=== PATIENT | female | born 1995 | race African-American/Black ===

== ENCOUNTER 2018-01-28 20:10 | Emergency (ER) | payer SELFPAY ==
[2018-01-28 21:12] LABS: URINE HCG POC HCG POSITIVE (Negative)
== END 2018-01-28 21:40 | disposition home or self-care (01) ==
LOC: ER 20:10
DX: Z32.01 Encounter for pregnancy test, result positive (principal)
CPT/HCPCS: 81025; 99282

== ENCOUNTER 2019-02-16 17:31 | Emergency (ER) | payer SELFPAY ==
[~2019-02-16] VITALS: Ht 160 cm; Wt 77.1 kg
[2019-02-16] MEDS ORDERED: LORA-434 PO (18:07)
[2019-02-16 18:31] LABS: BASO % 0 % (0-3); EOS # 0.2 x10^3/uL (0.0-0.7); EOS % 2 % (0-3); HEMATOCRIT 36.9 % (36.0-47.0); HEMOGLOBIN 12.3 g/dL (12.0-15.5); LYMPH # 3.2 x10^3/uL (1.0-4.8); LYMPH % 39 % (24-48); MEAN CORPUSCULAR HEMOGLOBIN 29 pg (25-35); MEAN CORPUSCULAR HGB CONC 33 g/dL (31-37); MEAN CORPUSCULAR VOLUME 87 fL (79-100); MONO # 0.4 x10^3/uL (0.0-1.1); MONO % 5 % (0-9); NEUT # 4.4 x10^3/uL (1.8-7.7); NEUT % 54 % (31-73); PLATELET COUNT 300 x10^3/uL (140-400); RED BLOOD COUNT 4.27 x10^6/uL (3.50-5.40); RED CELL DISTRIBUTION WIDTH 13.5 % (11.5-14.5); WHITE BLOOD COUNT 8.3 x10^3/uL (4.0-11.0)
[2019-02-16 18:39] LABS: CALCIUM 9.1 mg/dL (8.5-10.1); CREATININE 0.9 mg/dL (0.6-1.0); GFR 93.9; POTASSIUM 3.6 mmol/L (3.5-5.1)
[2019-02-16 18:45] LABS: ALBUMIN 3.9 g/dL (3.4-5.0); TOTAL BILIRUBIN 0.2 mg/dL (0.2-1.0); TOTAL PROTEIN 7.9 g/dL (6.4-8.2)
[2019-02-16 19:40] VITALS: BP 115/72
--- NOTE | 2019-02-16 19:52 | PHYS DOC ---
Past Medical History Past Medical History: No Pertinent History Past Surgical History: No Surgical History Alcohol Use: None Drug Use: None Adult General Chief Complaint Chief Complaint: CHEST PAIN HPI HPI Patient is a 23 year old female who presents with a chief complaint of chest discomfort she thinks that her anxiety it feels tight at times is intermittent in nature it's been since around 2 PM. She is 5 months she does have a prior history of anxiety she had been on Wellbutrin and Effexor which did help her in the past but she has not been on anything since she had her baby. Not exertional no shortness of breath no prior history of blood clot not coughing up any blood no other symptoms symptoms are related mild overall All other ROS neg unless otherwise noted in HPI Review of Systems Review of Systems SEE ABOVE Allergies Allergies Allergies Coded Allergies Type Severity Reaction Last Updated Verified No Known Drug Allergies 01/28/18 No Physical Exam Physical Exam see above Constitutional: Well developed, well nourished, no acute distress, non-toxic appearance. [] HENT: Normocephalic, atraumatic, bilateral external ears normal, oropharynx moist, no oral exudates, nose normal. [] Eyes: PERRLA, EOMI, conjunctiva normal, no discharge. [] Neck: Normal range of motion, no tenderness, supple, no stridor. [] Cardiovascular:Heart rate regular rhythm, no murmur [] Lungs & Thorax: Bilateral breath sounds clear to auscultation [] Abdomen: Bowel sounds normal, soft, no tenderness, no masses, no pulsatile mas ses. [] Skin: Warm, dry, no erythema, no rash. [] Back: No tenderness, no CVA tenderness. [] Extremities: No tenderness, no cyanosis, no clubbing, ROM intact, no edema. [] Neurologic: Alert and oriented X 3, normal motor function, normal sensory function, no focal deficits noted. [] Psychologic: Affect normal, judgement normal, mood normal. [] Current Patient Data Vital Signs Vital Signs Date Time Temp Pulse Resp B/P (MAP) Pulse Ox O2 Delivery O2 Flow Rate FiO2 02/16/19 17:47 97.9 90 18 134/60 (84) 99 Room Air 97.9 Lab Values Laboratory Tests Test 02/16/19 18:20 02/16/19 19:10 White Blood Count 8.3 x10^3/uL (4.0-11.0) Red Blood Count 4.27 x10^6/uL (3.50-5.40) Hemoglobin 12.3 g/dL (12.0-15.5) Hematocrit 36.9 % (36.0-47.0) Mean Corpuscular Volume 87 fL (79-100) Mean Corpuscular Hemoglobin 29 pg (25-35) Mean Corpuscular Hemoglobin Concent 33 g/dL (31-37) Red Cell Distribution Width 13.5 % (11.5-14.5) Platelet Count 300 x10^3/uL (140-400) Neutrophils (%) (Auto) 54 % (31-73) Lymphocytes (%) (Auto) 39 % (24-48) Monocytes (%) (Auto) 5 % (0-9) Eosinophils (%) (Auto) 2 % (0-3) Basophils (%) (Auto) 0 % (0-3) Neutrophils # (Auto) 4.4 x10^3/uL (1.8-7.7) Lymphocytes # (Auto) 3.2 x10^3/uL (1.0-4.8) Monocytes # (Auto) 0.4 x10^3/uL (0.0-1.1) Eosinophils # (Auto) 0.2 x10^3/uL (0.0-0.7) Basophils # (Auto) 0.0 x10^3/uL (0.0-0.2) Sodium Level 144 mmol/L (136-145) Potassium Level 3.6 mmol/L (3.5-5.1) Chloride Level 106 mmol/L (98-107) Carbon Dioxide Level 28 mmol/L (21-32) Anion Gap 10 (6-14) Blood Urea Nitrogen 7 mg/dL (7-20) Creatinine 0.9 mg/dL (0.6-1.0) Estimated GFR (Cockcroft-Gault) 93.9 BUN/Creatinine Ratio 8 (6-20) Glucose Level 81 mg/dL (70-99) Calcium Level 9.1 mg/dL (8.5-10.1) Total Bilirubin 0.2 mg/dL (0.2-1.0) Aspartate Amino Transferase (AST) 17 U/L (15-37) Alanine Aminotransferase (ALT) 28 U/L (14-59) Alkaline Phosphatase 84 U/L (46-116) Troponin I Quantitative < 0.017 ng/mL (0.000-0.055) Total Protein 7.9 g/dL (6.4-8.2) Albumin 3.9 g/dL (3.4-5.0) Albumin/Globulin Ratio 1.0 (1.0-1.7) POC Urine HCG, Qualitative Hcg negative (Negative) Laboratory Tests 02/16/19 18:20 Laboratory Tests 02/16/19 18:20 EKG EKG []EKG shows normal sinus rhythm with rate of 84 there are some nonspecific changes anteriorly but no acute ST elevation or ischemia was identified Radiology/Procedures Radiology/Procedures [] Impressions: Chest x-ray was negative acute by my interpretation Course & Med Decision Making Course & Med Decision Making Pertinent Labs and Imaging studies reviewed. (See chart for details) []Well-appearing 23-year-old female with atypical chest pain troponin EKG negative probably anxiety she thinks that PERC NEGATIVE No leg swelling no prior history of DVT no hemoptysis not on any hormone therapy she is now 5 months and think she is out of any risk factor for thromboembolic disease in my opinion. Dragon Disclaimer Dragon Disclaimer This electronic medical record was generated, in whole or in part, using a voice recognition dictation system. Departure Departure Impression: Primary Impression: Anxiety Disposition: 01 HOME, SELF-CARE Condition: STABLE Patient Instructions: Anxiety and Panic Attacks, Smxy-us-Mrrt Scripts Lorazepam (ATIVAN) 1 Mg Tablet 1 MG PO DAILY PRN for ANXIETY / AGITATION, #20 TAB Prov: GISSEL COLBERT MD 02/16/19 GISSEL COLBERT MD Feb 16, 2019 19:52
--- NOTE | 2019-02-17 07:24 | EKG ---
[facility] [address] [place] [address] Test Date: 2019-02-16 Test Time: 17:35:48 Pat Name: JAZMIN CLARKE Department: Room: Gender: F Bag Sorter: : 1995 Requested By: GISSEL COLBERT Order Number: [id number] Reading MD: Measurements Intervals [place] Rate: 84 P: 51 FL: 136 QRS: 31 QRSD: 76 T: 24 QT: 358 QTc: 426 Interpretive Statements SINUS RHYTHM NO SPECIFIC ECG ABNORMALITIES RI6.01 Unconfirmed report No previous ECG available for comparison
--- NOTE | 2019-02-17 08:21 | RAD ---
Single view of the chest. 02/16/2019 5:57 PM Indication: Chest pain Comparison: None Findings: There is no focal consolidation. There is no pleural effusion or pneumothorax. The cardiomediastinal silhouette and pulmonary vasculature are within normal limits. No acute osseous abnormalities are seen. Impression: No evidence of acute cardiopulmonary process. Electronically signed by: Benigno Greenberg MD (02/17/2019 8:18 AM) [id number]
== END 2019-02-16 19:45 | disposition home or self-care (01) ==
LOC: ER 17:31
DX: F41.9 Anxiety disorder, unspecified (principal); R07.89 Other chest pain
CPT/HCPCS: 36415; 71045; 80053; 81025; 84484; 85025; 93005; 99285-25

== ENCOUNTER 2019-03-27 09:22 | Emergency (ER) | payer BC ==
[~2019-03-27] VITALS: Ht 160 cm; Wt 72.6 kg
[~2019-03-27 09:22] MED LIST: LORA-434 PO
[2019-03-27 09:40] VITALS: BP 105/63
[2019-03-27] MEDS ORDERED: DEXAMETHASONE 4 MG TABLET PO STA (09:41)
--- NOTE | 2019-03-27 09:44 | PHYS DOC ---
Past Medical History Past Medical History: No Pertinent History Past Surgical History: No Surgical History Alcohol Use: None Drug Use: None Adult General Chief Complaint Chief Complaint: SORE THROAT HPI HPI Patient is a 23 year old female who presents with sore throat, congestion, runny nose, and cough that has been ongoing since yesterday. The patient denies running any fevers at home, states she's been trying [id number] cold medicine that her voice feels hoarse and she is having 6 out of 10 pain in her throat. Review of Systems Review of Systems Constitutional: Denies fever or chills [] Eyes: Denies change in visual acuity, redness, or eye pain [] HENT: Reports nasal congestion, runny nose, and sore throat [] Respiratory: Reports cough Cardiovascular: No additional information not addressed in HPI [] GI: Denies abdominal pain, nausea, vomiting, bloody stools or diarrhea [] : Denies dysuria or hematuria [] Musculoskeletal: Denies back pain or joint pain [] Integument: Denies rash or skin lesions [] Neurologic: Denies headache, focal weakness or sensory changes [] Endocrine: Denies polyuria or polydipsia [] Complete systems were reviewed and found to be within normal limits, except as documented in this note. Allergies Allergies Allergies Coded Allergies Type Severity Reaction Last Updated Verified No Known Drug Allergies 01/28/18 No Physical Exam Physical Exam Constitutional: Well developed, well nourished, no acute distress, non-toxic appearance. [] HENT: Normocephalic, atraumatic, bilateral external ears normal, oropharynx moist, tonsils are erythematous 2+/4 with no oral exudates, uvula midline, nose turbinates inflamed. Eyes: PERRLA, EOMI, conjunctiva normal, no discharge. [] Neck: Normal range of motion, no tenderness, supple, no stridor. [] Cardiovascular:Heart rate regular rhythm, no murmur [] Lungs & Thorax: Bilateral breath sounds clear to auscultation [] Abdomen: Bowel sounds normal, soft, no tenderness, no masses, no pulsatile masses. [] Skin: Warm, dry, no erythema, no rash. [] Back: No tenderness, no CVA tenderness. [] Extremities: No tenderness, no cyanosis, no clubbing, ROM intact, no edema. [] Neurologic: Alert and oriented X 3, normal motor function, normal sensory function, no focal deficits noted. [] Psychologic: Affect normal, judgement normal, mood normal. [] EKG EKG [] Radiology/Procedures Radiology/Procedures [] Course & Med Decision Making Course & Med Decision Making Pertinent Labs and Imaging studies reviewed. (See chart for details) Appears to have allergic rhinitis. Will give Decadron in ER and discussed with patient to take Zyrtec and Mucinex OTC. The patient is a 0 on the Centor criteria which does not recommend Strep testing or antibiotics. Dragon Disclaimer Dragon Disclaimer This electronic medical record was generated, in whole or in part, using a voice recognition dictation system. Departure Departure Impression: Primary Impression: Allergic rhinitis Disposition: HOME, SELF-CARE Condition: STABLE Referrals: NO PCP (PCP) Patient Instructions: Allergic Rhinitis Additional Instructions: Thank you for visiting [facility]. We appreciate you trusting us with your care. If any additional problems come up don't hesitate to return to visit us. Please follow up with your primary care provider so they can plan additional care if needed and know about the problem that you had. If symptoms worsen come back to the Emergency Department. Any concerning symptoms that start such as chest pain, shortness of air, weakness or numbness on one side of the body, running high fevers or any other concerning symptoms return to the ER. Please tack picker Zyrtec and Mucinex from the pharmacy over the counter and take per label instructions. Please drink plenty of water to thin your secretions. Problem Qualifiers Primary Impression: Allergic rhinitis Allergic rhinitis trigger: unspecified Allergic rhinitis seasonality: unspecified Qualified Codes: J30.9 - Allergic rhinitis, unspecified RADHA LAGOS APRN Mar 27, 2019 09:43
== END 2019-03-27 10:12 | disposition home or self-care (01) ==
LOC: ER 09:22
DX: J30.9 Allergic rhinitis, unspecified (principal)
CPT/HCPCS: 99282; J8540

== ENCOUNTER 2019-04-06 12:22 | Emergency (ER) | payer BC ==
[~2019-04-06] VITALS: Ht 160 cm; Wt 76.7 kg
[2019-04-06] MEDS ORDERED: LIDOCAINE 1% Multi-Dose 20 ML VIAL. INJ ONE (12:45)
[2019-04-06 12:53] VITALS: BP 108/71
[2019-04-06] MEDS ORDERED: SULF1TAB24 PO (14:06)
[2019-04-06] MEDS ORDERED: CEPH-264 PO (14:06)
[2019-04-06] MEDS ORDERED: IBUP-1007 PO (14:06)
[2019-04-06] MEDS ORDERED: TRAM-48 PO (14:06)
--- NOTE | 2019-04-06 14:06 | PHYS DOC ---
Past Medical History Past Medical History: No Pertinent History Past Surgical History: No Surgical History Alcohol Use: None Drug Use: None Adult General Chief Complaint Chief Complaint: pilonidal cyst HPI HPI Patient is a 23 year old female who presents with complaining of pain in pilonidal cyst area. Patient states she had sacral pain and seen at urgent care 3 days ago and diagnosed with pilonidal cyst infection and treated with Augmentin without improvement of her condition. Patient denies urinary symptom, , fever and chills, nausea and vomiting, history of the same problem. Review of Systems Review of Systems Constitutional: Denies fever or chills [] Eyes: Denies change in visual acuity, redness, or eye pain [] HENT: Denies nasal congestion or sore throat [] Respiratory: Denies cough or shortness of breath [] Cardiovascular: No additional information not addressed in HPI [] GI: Denies abdominal pain, nausea, vomiting, bloody stools or diarrhea [] : Denies dysuria or hematuria [] Musculoskeletal: Denies back pain or joint pain [] Integument: Denies rash, reports skin lesions [] Neurologic: Denies headache, focal weakness or sensory changes [] Endocrine: Denies polyuria or polydipsia [] All other systems were reviewed and found to be within normal limits, except as documented in this note. Current Medications Current Medications Current Medications Medications (Trade) Dose Ordered Sig/Lauren Start Time Stop Time Status Last Admin Dose Admin Acetaminophen/ Hydrocodone Bitart (Lortab 5/325) 1 tab 1X ONCE 04/06/19 14:30 04/06/19 14:31 DC 04/06/19 14:31 1 TAB Lidocaine HCl (Lidocaine 1% 20ml Vial) 20 ml 1X ONCE 04/06/19 12:45 04/06/19 12:46 DC Allergies Allergies Allergies Coded Allergies Type Severity Reaction Last Updated Verified No Known Drug Allergies 01/28/18 No Physical Exam Physical Exam Constitutional: Well developed, well nourished, mild distress, non-toxic appearance. [] HENT: Normocephalic, atraumatic. Eyes: PERRLA, EOMI, conjunctiva normal, no discharge. [] Neck: Normal range of motion, no tenderness, supple, no stridor. [] Cardiovascular:Heart rate regular rhythm, no murmur [] Lungs & Thorax: Bilateral breath sounds clear to auscultation [] Abdomen: Bowel sounds normal, soft, no tenderness, no masses, no pulsatile masses. [] Skin: Warm, dry, area of tenderness and central fluctuation and erythema in right gluteal close to midline of sacral area Back: No tenderness, no CVA tenderness. [] Extremities: No tenderness, no cyanosis, no clubbing, ROM intact, no edema. [] Neurologic: Alert and oriented X 3, no focal deficits noted. [] Psychologic: Affect normal, judgement normal, mood normal. [] Current Patient Data Vital Signs Vital Signs Date Time Temp Pulse Resp B/P (MAP) Pulse Ox O2 Delivery O2 Flow Rate FiO2 04/06/19 14:31 16 98 Room Air 04/06/19 12:53 98.2 78 108/71 (83) 98.2 EKG EKG [] Radiology/Procedures Radiology/Procedures [] Course & Med Decision Making Course & Med Decision Making Evaluation of patient in ER showed 23-year-old female patient with pilonidal cyst infection that did not get better with outpatient treatment with antibiotic. Abscess was drained and packed and patient felt better. Patient was advised to follow-up with on-call surgeon. Dragon Disclaimer Dragon Disclaimer This electronic medical record was generated, in whole or in part, using a voice recognition dictation system. Departure Departure Impression: Primary Impression: Pilonidal abscess Disposition: 01 HOME, SELF-CARE (at 14 0 to) Condition: IMPROVED Referrals: NO PCP (PCP) Patient Instructions: Pilonidal Cyst, Pilonidal Cyst, Care After Additional Instructions: Change dressing twice a day Drink plenty of liquids Follow-up with your primary care physician in 3-5 days Return to ER if not getting better Scripts Tramadol Hcl (ULTRAM) 50 Mg Tablet 50 MG PO Q6HRS PRN for PAIN, #10 TAB 0 Refills Prov: ADARSH ARMSTRONG MD 04/06/19 Cephalexin (KEFLEX) 500 Mg Capsule 2 CAP PO Q12HR, #28 CAP Prov: ADARSH ARMSTRONG MD 04/06/19 Ibuprofen (IBUPROFEN) 600 Mg Tablet 600 MG PO PRN Q6HRS PRN for PAIN, #20 TAB take with food or milk Prov: ADARSH ARMSTRONG MD 9/23/19 Sulfamethoxazole/Trimethoprim (BACTRIM DS TABLET) 1 Each Tablet 1 TAB PO BID for infection, #14 TAB Prov: ADARSH ARMSTRONG MD 04/06/19 Incision and Drainage Indication: abscess of pilonidal cyst Procedure: The patient was positioned appropriately. Local anesthesia was bending 1% lidocaine. An incision was then made over the apex of the lesion and large amount of foul smelling pus was expressed. The drainage cavity was irrigated and packed with sterile gauze. The patient�s tetanus status was updated. The patient tolerated the procedure well. Complications: none. ADARSH ARMSTRONG MD Apr 06, 2019 14:06
[2019-04-06] MEDS ORDERED: HYDROcodone/APAP 5/325MG 1 TAB TABLET PO ONE (14:30)
== END 2019-04-06 14:33 | disposition home or self-care (01) ==
LOC: ER 12:22
DX: L05.01 Pilonidal cyst with abscess (principal)
CPT/HCPCS: 10060; 10080; 99283; 99284

== ENCOUNTER 2019-05-28 11:11 | Emergency (ER) | payer BC ==
[~2019-05-28] VITALS: Ht 160 cm; Wt 72.6 kg
[~2019-05-28 11:11] MED LIST changes: +CEPH-264 PO; +IBUP-1007 PO; +SULF1TAB24 PO; +TRAM-48 PO
[2019-05-28 11:34] LABS: BILIRUBIN,URINE NEGATIVE (NEG); CLARITY,URINE CLEAR; COLOR,URINE YELLOW; NITRITE,URINE NEGATIVE (NEG); PH,URINE 7.5; PROTEIN,URINE 30 mg/dL (NEG-TRACE); UROBILINOGEN,URINE 0.2 mg/dL (0.2 mg/dL)
[2019-05-28 11:46] LABS: SQUAMOUS EPITHELIAL CELL,UR FEW /LPF
[2019-05-28 11:47] LABS: BACTERIA,URINE FEW /HPF (0-FEW); RBC,URINE TNTC /HPF (0-2)
[2019-05-28 11:57] LABS: BASO % 0 % (0-3); EOS # 0.1 x10^3/uL (0.0-0.7); EOS % 1 % (0-3); HEMATOCRIT 38.9 % (36.0-47.0); HEMOGLOBIN 12.9 g/dL (12.0-15.5); LYMPH # 0.9 x10^3/uL (1.0-4.8); LYMPH % 6 % (24-48); MEAN CORPUSCULAR HEMOGLOBIN 29 pg (25-35); MEAN CORPUSCULAR HGB CONC 33 g/dL (31-37); MEAN CORPUSCULAR VOLUME 86 fL (79-100); MONO % 7 % (0-9); NEUT # 12.7 x10^3/uL (1.8-7.7); NEUT % 86 % (31-73); PLATELET COUNT 290 x10^3/uL (140-400); RED BLOOD COUNT 4.53 x10^6/uL (3.50-5.40); WHITE BLOOD COUNT 14.8 x10^3/uL (4.0-11.0)
[2019-05-28 12:00] LABS: U PREG PATIENT NEGATIVE (NEG)
[2019-05-28] MEDS ORDERED: IV NORMAL SALINE 1000ML BAG 1,000 ML IV ONE (12:00)
[2019-05-28] MEDS ORDERED: ONDANSETRON PF 4 MG/2 ML VIAL. IV ONE (12:00)
[2019-05-28 12:11] LABS: CALCIUM 9.3 mg/dL (8.5-10.1); CREATININE 0.9 mg/dL (0.6-1.0); GFR 93.9; POTASSIUM 3.9 mmol/L (3.5-5.1)
[2019-05-28 12:16] LABS: ALBUMIN 4.2 g/dL (3.4-5.0); MAGNESIUM 1.5 mg/dL (1.8-2.4); TOTAL BILIRUBIN 0.5 mg/dL (0.2-1.0); TOTAL PROTEIN 8.4 g/dL (6.4-8.2)
[2019-05-28 12:50] LABS: % BASOS 1 % (0-3); % EOS 1 % (0-5); % LYMPHS 5 % (24-48); % MONOS 6 % (0-10)
[2019-05-28 12:51] LABS: % SEGS 87 % (35-66)
[2019-05-28] MEDS ORDERED: ONDA4TAB11 PO (12:52)
--- NOTE | 2019-05-28 12:52 | PHYS DOC ---
Past Medical History Past Medical History: No Pertinent History Past Surgical History: No Surgical History Alcohol Use: None Drug Use: None Adult General Chief Complaint Chief Complaint: NAUSEA/VOMITING/DIARRHA HPI HPI Patient is a 23 year old AA female who presents to the emergency Department today with complaints of nausea, vomiting, and diarrhea since early this morning. Patient states that she has vomited at least 3 times and she has had 5 or 6 episodes of diarrhea today. She denies any blood in her stool. She denies any fever, cough, shortness of breath, wheezing, headache, sore throat, low back pain, hematuria, dysuria, or increased urinary frequency. Patient states she has been unable to keep water down the onset of the symptoms. She currently rates her abdominal pain a 5 out of 10 on the pain scale and describes it as diffuse crampy discomfort. She denies any alleviating factors. All other ROS is neg unless otherwise noted in HPI. Review of Systems Review of Systems See Above Current Medications Current Medications Current Medications Medications (Trade) Dose Ordered Sig/Lauren Start Time Stop Time Status Last Admin Dose Admin Ondansetron HCl (Zofran) 4 mg 1X ONCE 05/28/19 12:00 05/28/19 12:01 DC 05/28/19 11:59 4 MG Sodium Chloride 1,000 ml @ 1,000 mls/hr 1X ONCE 05/28/19 12:00 05/28/19 12:59 DC 05/28/19 11:59 1,000 MLS/HR Allergies Allergies Allergies Coded Allergies Type Severity Reaction Last Updated Verified No Known Drug Allergies 01/28/18 No Physical Exam Physical Exam See Above Constitutional: Well developed, well nourished, no acute distress, non-toxic appearance. [] HENT: Normocephalic, atraumatic, bilateral external ears normal, oropharynx moist, no oral exudates, nose normal. [] Eyes: PERRLA, EOMI, conjunctiva normal, no discharge. [] Neck: Normal range of motion, no stridor. [] Cardiovascular:Heart rate regular rhythm, no murmur [] Lungs & Thorax: Bilateral breath sounds clear to auscultation [] Abdomen: Bowel sounds normal, soft, no tenderness, no masses, no pulsatile masses. [] Skin: Warm, dry, no erythema, no rash. [] Back: No CVA tenderness. [] Extremities: No cyanosis, ROM intact, no edema. [] Neurologic: Alert and oriented X 3, no focal deficits noted. [] Psychologic: Affect normal, judgement normal, mood normal. [] Current Patient Data Vital Signs Vital Signs Date Time Temp Pulse Resp B/P (MAP) Pulse Ox O2 Delivery O2 Flow Rate FiO2 05/28/19 13:00 86 16 90/55 (67) 98 Room Air 05/28/19 11:25 97.8 97.8 Lab Values Laboratory Tests Test 05/28/19 11:20 05/28/19 11:50 Urine Collection Type Unknown Urine Color Yellow Urine Clarity Clear Urine pH 7.5 Urine Specific [place] >=1.030 Urine Protein 30 mg/dL (NEG-TRACE) Urine Glucose (UA) Negative mg/dL (NEG) Urine Ketones (Stick) 15 mg/dL (NEG) Urine Blood Large (NEG) Urine Nitrite Negative (NEG) Urine Bilirubin Negative (NEG) Urine Urobilinogen Dipstick 0.2 mg/dL (0.2 mg/dL) Urine Leukocyte Esterase Trace (NEG) Urine RBC Tntc /HPF (0-2) Urine WBC 1-4 /HPF (0-4) Urine Squamous Epithelial Cells Few /LPF Urine Bacteria Few /HPF (0-FEW) Urine Mucus Marked /LPF Urine Test Negative (NEG) White Blood Count 14.8 x10^3/uL (4.0-11.0) H Red Blood Count 4.53 x10^6/uL (3.50-5.40) Hemoglobin 12.9 g/dL (12.0-15.5) Hematocrit 38.9 % (36.0-47.0) Mean Corpuscular Volume 86 fL (79-100) Mean Corpuscular Hemoglobin 29 pg (25-35) Mean Corpuscular Hemoglobin Concent 33 g/dL (31-37) Red Cell Distribution Width 13.0 % (11.5-14.5) Platelet Count 290 x10^3/uL (140-400) Neutrophils (%) (Auto) 86 % (31-73) H Lymphocytes (%) (Auto) 6 % (24-48) L Monocytes (%) (Auto) 7 % (0-9) Eosinophils (%) (Auto) 1 % (0-3) Basophils (%) (Auto) 0 % (0-3) Neutrophils # (Auto) 12.7 x10^3/uL (1.8-7.7) H Lymphocytes # (Auto) 0.9 x10^3/uL (1.0-4.8) L Monocytes # (Auto) 1.0 x10^3/uL (0.0-1.1) Eosinophils # (Auto) 0.1 x10^3/uL (0.0-0.7) Basophils # (Auto) 0.0 x10^3/uL (0.0-0.2) Segmented Neutrophils % 87 % (35-66) H Lymphocytes % 5 % (24-48) L Monocytes % 6 % (0-10) Eosinophils % 1 % (0-5) Basophils % 1 % (0-3) Platelet Estimate Adequate (ADEQUATE) Sodium Level 141 mmol/L (136-145) Potassium Level 3.9 mmol/L (3.5-5.1) Chloride Level 102 mmol/L (98-107) Carbon Dioxide Level 24 mmol/L (21-32) Anion Gap 15 (6-14) H Blood Urea Nitrogen 13 mg/dL (7-20) Creatinine 0.9 mg/dL (0.6-1.0) Estimated GFR (Cockcroft-Gault) 93.9 BUN/Creatinine Ratio 14 (6-20) Glucose Level 99 mg/dL (70-99) Calcium Level 9.3 mg/dL (8.5-10.1) Magnesium Level 1.5 mg/dL (1.8-2.4) L Total Bilirubin 0.5 mg/dL (0.2-1.0) Aspartate Amino Transferase (AST) 50 U/L (15-37) H Alanine Aminotransferase (ALT) 58 U/L (14-59) Alkaline Phosphatase 101 U/L (46-116) Total Protein 8.4 g/dL (6.4-8.2) H Albumin 4.2 g/dL (3.4-5.0) Albumin/Globulin Ratio 1.0 (1.0-1.7) Laboratory Tests 05/28/19 11:50 Laboratory Tests 05/28/19 11:50 EKG EKG [] Radiology/Procedures Radiology/Procedures [] Course & Med Decision Making Course & Med Decision Making Pertinent Labs and Imaging studies reviewed. (See chart for details) dx: n/v/d WBC 14.8; CMP unremarkable, ua gross hematuria, patient is currently on her menstrual cycle otherwise unremarkable She was given 1 L of normal saline, 4 mg of Zofran in the emergency department she reported feeling better after these medications. A Prescription was written for Zofran, patient was encouraged to drink clear fluids today then advance to bland diet and then as tolerated. Follow-up with primary care doctor if symptoms persist, return to the ER if symptoms worsen. Patient verbalized an understanding of home care, medications, follow-up, and return to ED instructions and was in agreement with the plan of care. [] Dragon Disclaimer Dragon Disclaimer This electronic medical record was generated, in whole or in part, using a voice recognition dictation system. Departure Departure Impression: Primary Impression: Nausea, vomiting, and diarrhea Disposition: 01 HOME, SELF-CARE Condition: STABLE Referrals: NO PCP (PCP) Patient Instructions: Diet for Diarrhea, Adult, Nausea and Vomiting, [id number] Additional Instructions: Fill prescriptions and use them as directed. Recommend clear fluids for the next 24 hours. Then you may advance to bland foods such as bananas, rice, applesauce, and dry toast. Follow-up with your primary care doctor in the next 1-2 days. Return to the emergency room if your symptoms worsen. Scripts Ondansetron Hcl (ONDANSETRON HCL) 4 Mg Tablet 1 TAB PO PRN Q6HRS PRN for NAUSEA/VOMITING for 3 Days, #10 TAB 0 Refills Prov: AMBIKA VELAZQUEZ APRN 05/28/19 AMBIKA VELAZQUEZ D[employer]AL [employer]GI[employer] INSTRUCTOR May 28, 2019 12:52
[2019-05-28 12:53] LABS: PLT ESTIMATE ADEQUATE (ADEQUATE)
[2019-05-28 13:00] VITALS: BP 90/55
== END 2019-05-28 13:22 | disposition home or self-care (01) ==
LOC: ER 11:11
DX: R11.2 Nausea with vomiting, unspecified (principal); R19.7 Diarrhea, unspecified; R10.9 Unspecified abdominal pain
CPT/HCPCS: 36415; 80053; 81001; 81025; 83735; 85007; 85025; 87086; 96361; 96374; 99284; J2405; J7030